=== PATIENT | female | born 1985 | race Caucasian/White ===

== ENCOUNTER 2018-02-18 09:20 | Emergency (ER) | payer MEDICAID ==
[~2018-02-18] VITALS: Ht 149.9 cm; Wt 65.0 kg
[2018-02-18 09:42] VITALS: BP 119/76
[2018-02-18] MEDS ORDERED: ibuprofen tablet 400 MG TABLET PO ONE (10:15)
[2018-02-18] MEDS ORDERED: IBUP-1984 PO (10:43)
[2018-02-18] MEDS ORDERED: LIDO20SO16 PO (10:43)
[2018-02-18] MEDS ORDERED: PENI250T2 PO (10:43)
== END 2018-02-18 10:50 | disposition home or self-care (01) ==
LOC: ER 09:20
DX: J02.0 Streptococcal pharyngitis (principal); F17.200 Nicotine dependence, unspecified, uncomplicated
CPT/HCPCS: 87880; 99284

== ENCOUNTER 2018-08-15 00:25 | Emergency (ER) | payer MEDICAID ==
[~2018-08-15] VITALS: Ht 149.9 cm; Wt 66.3 kg
[~2018-08-15 00:25] MED LIST: LIDO20SO16 PO
[2018-08-15] MEDS ORDERED: clindamycin 150mg capsule PO ONE (01:05)
[2018-08-15] MEDS ORDERED: bacitracin 15gm ointment TP ONE (01:05)
[2018-08-15] MEDS ORDERED: CLIN150C8 PO (01:06)
[2018-08-15 01:21] VITALS: BP 132/89
== END 2018-08-15 01:23 | disposition home or self-care (01) ==
LOC: ER 00:26
DX: L02.415 Cutaneous abscess of right lower limb (principal)
CPT/HCPCS: 10060; 99283

== ENCOUNTER → 2021-07-11 | Emergency (ER) | payer MEDICAID ==
[~2021-07-11] VITALS: Ht 149.9 cm; Wt 66.4 kg
[~2021-07-11] MED LIST changes: +CLIN150C8 PO; +LIDOcaine 2% 5ml jelly ONE; +METR-159 PO
[2021-07-11 11:02] VITALS: BP 106/72
[2021-07-11 11:45] LABS: URINE HCG NEGATIVE (NEG)
[2021-07-11 11:49] LABS: CLARITY,URINE CLOUDY (Clear); COLOR,URINE YELLOW (Yellow); GLUCOSE, URINE NEGATIVE (Neg); KETONES,URINE NEGATIVE (Neg); LEUKOCYTE ESTERASE ,URINE NEGATIVE (Neg); NITRITES, URINE NEGATIVE (Neg); OCCULT BLOOD,URINE NEGATIVE (Neg); PH,URINE 5.5 (4.8-8.0); PROTEIN,URINE NEGATIVE (Neg); UROBILINOGEN,URINE 0.2 E.U/dL (0.2-1.0)
[2021-07-11 11:56] LABS: UA COLLECTION TYPE CLN CATCH MIDSTREAM
[2021-07-11 12:00] LABS: BACTERIA,URINE 1+ /HPF (Neg); MUCUS STRANDS MODERATE /LPF (Neg); RBC,URINE 0-2 /HPF (0-2); SQUAMOUS EPITHELIAL CELL,UR MANY /LPF (FEW); WBC,URINE 0-4 /HPF (0-4)
== END | disposition home or self-care (01) ==
LOC: ER 10:17
DX: N89.8 Other specified noninflammatory disorders of vagina (principal); Z79.899 Other long term (current) drug therapy
CPT/HCPCS: 81001; 81025; 99283

== ENCOUNTER 2022-02-03 08:00 | Emergency (ER) | payer MEDICAID ==
[~2022-02-03] VITALS: Ht 149.9 cm; Wt 65.0 kg
[~2022-02-03 08:00] MED LIST changes: -LIDOcaine 2% 5ml jelly ONE; -METR-159 PO
[2022-02-03 08:05] VITALS: BP 133/79
--- NOTE | 2022-02-03 08:20 | NUR ---
Pt c/o of sore throat and painful to swallow x 2 days.
--- NOTE | 2022-02-03 09:14 | NUR ---
Pt given and understands d/c instructions. Ambulatory with a steady gait.
== END 2022-02-03 09:15 | disposition home or self-care (01) ==
LOC: ER 08:01
DX: R13.10 Dysphagia, unspecified (principal)
CPT/HCPCS: 87081; 87880; 99283